=== PATIENT | male | born 1985 | race Caucasian/White ===

== ENCOUNTER 2019-01-02 14:47 | Day surgery (SDC) ==
[2019-01-02 15:15] LABS: BASO# 0.04 X1000 (0.0-0.2); BASO% 0.4 % (0.0-0.8); EOS# 0.31 X1000 (0.0-0.7); EOS% 3.3 % (0.0-10.0); HEMOGLOBIN 15.9 g/dL (14.0-18.0); IMM GRAN# 0.02 X1000 (0.0-0.04); IMM GRAN% 0.2 % (0.0-0.5); LYMPH# 1.83 X1000 (1.2-3.4); LYMPH% 19.3 % (20.5-51.1); MCH 32.6 PG (27-31); MCHC 33.8 g/dL (33-37); MCV 96.3 FL (81-99); MONO% 8.4 % (1.7-9.3); MPV 10.6 FL (7.4-10.4); NEUT# 6.49 X1000 (1.4-6.5); NEUT% 68.4 % (42.2-75.2); PLT 191 X1000 (130-400); RBC 4.88 XMIL (4.7-6.1); RDW 13.2 % (11.5-14.5); WBC 9.49 X1000 (4.8-10.8)
--- NOTE | 2019-01-02 15:29 | PROVIDER DOCUMENTATION ---
HPI-Screening - General Chief Complaint: Abdominal Pain Stated Complaint: V/D STOMACH PAIN Time Seen by Provider: 01/02/19 15:25 Source: patient Allergies/Adverse Reactions: Allergies Allergy/AdvReac Type Severity Reaction Status Date / Time Tetanus Vaccines and Toxoid Allergy SWELLING Verified 12/09/17 10:14 Home Medications: Home Medication List Medication Instructions Recorded Confirmed Last Taken Type Buspirone HCl 15 mg PO DAILY 12/09/17 12/09/17 12/09/17 07:00 History Clindamycin HCl 300 mg PO Q8HR #21 cap 12/09/17 Unknown Rx Duloxetine HCl 60 mg PO BID 12/09/17 12/09/17 12/09/17 07:00 History Famotidine [Pepcid] 20 mg PO DAILY #14 tab 12/09/17 Unknown Rx Ketorolac [Toradol] 10 mg PO Q6-8H PRN PRN #15 tab 12/09/17 Unknown Rx Patient arrived via EMS?: No HPI: Pt. is 33 yom that presents with c/o abd pain to the mid abdomen. He reports N/V/D and states onset was upon waking this morning with pain increasing throughout the day. He denies any fever and is AO x 3. He has good PMS x 4. Pt. has normal color and turgor. Physical Exam-Screening - CONSTITUTIONAL General Appearance: alert, mild distress, thin. negative: obese, slow to respond, obtunded, combative - RESPIRATORY Respiratory: lungs clear, normal breath sounds. negative: crackles, rales, rhonchi, stridor, wheezing - GASTROINTESTINAL (ABDOMEN) Abdominal Exam: soft, abnormal bowel sounds (hypoactive). negative: tenderness, hernia, mass - SKIN Integumentary: normal color, normal turgor. negative: cyanosis, erythema, jaundice, pallor, swelling, tenderness - PSYCHIATRIC Psych/Mental Status: normal mood/affect, normal thought content, normal thought process, oriented x 3. negative: anxious, paranoid, tearful Screening Depart - Departure ED Screening Disposition: Continued in ED for Treatment Date of Disposition Decision: 01/02/19 Time of Disposition Decision: 15:28 DIAGNOSIS: Nausea and vomiting Qualifiers: Vomiting type: unspecified Vomiting Intractability: unspecified Qualified Code(s): R11.2 - Nausea with vomiting, unspecified Disposition: STILL A PATIENT 30 Certified Medical Emergency: Emergent Condition: Stable Referrals and Follow-Ups: None,PCP [Primary Care Provider] - Attestation - Physician/ EVA Attestation Patient care was provided by Advanced Practice Provider:: Yes Advanced Practice Provider:: Chen Carbajal Advanced Practice Provider documentation review:: The Mid-level provider documentation, treatment plan and medical decision making was reviewed by the physician who agrees with all treatment and medical decision making by the MLP. The physician spent face to face time with patient:: No Advanced Practice Provider documentation review:: Supervising physician onsite and consulted in the evaluation and care of this patient. The physician did not have a face to face encounter with the patient.
[2019-01-02 15:52] LABS: AGAP 13; ALB/GLOB RATIO 1.4; ALBUMIN 4.2 g/dL (3.5-5.0); ALKALINE PHOSPHATASE 81 U/L (32-122); AMYLASE 52 U/L (20-200); BUN 9 mg/dL (8-22); CALCIUM 8.9 mg/dL (8.8-10.2); CHLORIDE 105 mmol/L (98-107); COSMO 280; CREATININE 0.8 mg/dL (0.7-1.2); ESTIMATED GFR > 60; GLUCOSE 105 mg/dL (70-104); GOT 17 U/L (10-34); GPT 15 U/L (10-44); LIPASE 21 U/L (13-60); POTASSIUM 4.1 mmol/L (3.5-5.1); SODIUM 141 mmol/L (136-145); TCO2 23 mmol/L (25-35); TOTAL BILIRUBIN 0.48 mg/dL (0.20-1.00); TOTAL PROTEIN 7.3 g/dL (6.3-8.3)
--- NOTE | 2019-01-02 15:52 | Diag Imaging Result Doc PS360 ---
FLAT/UPRIGHT ABD/1 VIEW CHEST - 01/02/2019 INDICATION: abd pain TECHNIQUE: COMPARISON: None FINDINGS: The chest is clear. There is a nonobstructive bowel gas pattern. No free air or abnormal calcifications. IMPRESSION: Negative exam. Electronically signed by Austyn Porras 01/02/2019 3:50 PM
[2019-01-02 16:10] LABS: URINE SOURCE CLEAN CATCH
[2019-01-02 16:15] LABS: BILIRUBIN URINE NEGATIVE (NEGATIVE); BLOOD URINE NEGATIVE (NEGATIVE); COLOR YELLOW; GLUCOSE URINE NEGATIVE (NEGATIVE); KETONE URINE NEGATIVE (NEGATIVE); LEUKOCYTES URINE NEGATIVE (NEGATIVE); NITRITE URINE NEGATIVE (NEGATIVE); PH URINE 7.5; PROTEIN URINE 30 mg/dL (NEGATIVE); SP GRAVITY URINE 1.031; TURBIDITY URINE CLEAR (CLEAR); UROBILINOGEN URINE 8 mg/dL (NORMAL)
--- NOTE | 2019-01-02 16:17 | PROVIDER DOCUMENTATION ---
HPI-General Adult - General Chief Complaint: Abdominal Pain Stated Complaint: V/D STOMACH PAIN Time Seen by Provider: 01/02/19 15:25 Source: patient Allergies/Adverse Reactions: Patient Allergies Allergy/AdvReac Type Severity Reaction Status Date / Time Tetanus Vaccines and Toxoid Allergy SWELLING Verified 12/09/17 10:14 Home Medications: Home Medication List Medication Instructions Recorded Confirmed Last Taken Type Buspirone HCl 15 mg PO DAILY 12/09/17 12/09/17 12/09/17 07:00 History Clindamycin HCl 300 mg PO Q8HR #21 cap 12/09/17 Unknown Rx Duloxetine HCl 60 mg PO BID 12/09/17 12/09/17 12/09/17 07:00 History Famotidine [Pepcid] 20 mg PO DAILY #14 tab 12/09/17 Unknown Rx Ketorolac [Toradol] 10 mg PO Q6-8H PRN PRN #15 tab 12/09/17 Unknown Rx - History of Present Illness -Gen Adult Nature of Presenting Problems: This is a 33yo male who present with CC of abdominal pain and nausea. The patient reports that symptoms started this morning. He was able to eat, but then threw up three times at work. The patient denies bloody stool or bloody vomit. The patient reports that he is not sure if he has had a fever, but has had some diarrhea. Review of Systems - Adult - REVIEW OF SYSTEMS - ADULT Constitutional: reports: fever (possible), fatique Eyes: reports: no symptoms reported. denies: eye pain Ears, Nose, Mouth & Throat: reports: no symptoms reported. denies: throat pain Cardiovascular: reports: no symptoms reported. denies: chest pain Respiratory: reports: no symptoms reported Gastrointestinal: reports: abdominal pain, diarrhea, nausea, vomiting Genitourinary: reports: no symptoms reported. denies: flank pain Musculoskeletal: reports: no symptoms reported Integumentary: reports: no symptoms reported Neurological: reports: no symptoms reported. denies: headache/migraines Psychiatric: reports: no symptoms reported Endocrine: reports: no symptoms reported Hematologic/Lymphatic: reports: no symptoms reported, other (no bleeding) Allergic/Immunologic: reports: other (no swelling) Past History - Adult - PAST MEDICAL HISTORY-ADULT Review of Records: reports: Old Records Reviewed, Nursing Assessment Review Major Childhood Illnesses: reports: denies history Cardiovascular: reports: denies history Respiratory: reports: denies history Gastrointestinal: reports: denies history Obstetrical/Gynecological: reports: denies history Genitourinary: reports: denies history Musculoskeletal: reports: denies history Neurological: reports: denies history Psychiatric: reports: anxiety, psychiatric problems Endocrine/Immune: reports: denies history Other Conditions: reports: denies history - PRIOR SURGERIES/PROCEDURES Surgical/Procedure History: reports: none - IMMUNIZATION STATUS Childhood Immunizations: See Nurse Assessment Flu Vaccine: See Nurse Assessment - FAMILY HISTORY Family History: reviewed, not pertinent - SOCIAL HISTORY Smoking: less than 1 pack/day Provider spent 3-5 mins advising pt. on dangers of tobacco.: Recomended cessatio n Substance Use: none/never Alcohol Use Frequency: never Physical Exam-General - PHYSICAL EXAM-ADULT Initial Vital Signs Reviewed: Yes - CONSTITUTIONAL General Appearance: appears well, alert, no apparent distress - EYES Eyes: negative: conjuctival exudate, photophobia, scleral icterus - HEAD, EARS, NOSE, MOUTH & THROAT HENMT: normocephalic/atraumatic, moist mucous membranes - NECK Neck: non-tender, other (no mass) - RESPIRATORY Respiratory: lungs clear, normal breath sounds, no respiratory distress - CARDIOVASCULAR Cardiovascular: regular rate, rhythm, no edema - GASTROINTESTINAL (ABDOMEN) Abdominal Exam: soft, rebound, tenderness, McBurney's point tenderness, Rovsing's sign. negative: guarding - MUSCULOSKELETAL Back Exam: no CVA tenderness Extremity: negative: deformity (LE) - SKIN Integumentary: normal color, warm/dry - NEUROLOGIC Neurologic: grossly normal - PSYCHIATRIC Psych/Mental Status: normal mood/affect, normal thought content, normal thought process Progress - PLAN OF CARE/RESULTS Progress/Plan/Lab Results: Vital Signs - 8 hr 01/02/19 14:51 Temperature 98.1 F Pulse Rate 65 Respiratory Rate 17 Blood Pressure 114/75 O2 Sat by Pulse Oximetry 99 Laboratory Results - last 24 hr 01/02/19 01/02/19 01/02/19 14:56 14:56 15:38 WBC 9.49 RBC 4.88 Hgb 15.9 Hct 47.0 MCV 96.3 MCH 32.6 H MCHC 33.8 RDW Std Deviation 13.2 Plt Count 191 MPV 10.6 H Immature Gran % (Auto) 0.2 Neut % (Auto) 68.4 Lymph % (Auto) 19.3 L Coffee % (Auto) 8.4 Eos % (Auto) 3.3 Baso % (Auto) 0.4 Immature Gran # (Auto) 0.02 Neut # (Auto) 6.49 Lymph # (Auto) 1.83 Coffee # (Auto) 0.80 H Eos # (Auto) 0.31 Baso # (Auto) 0.04 Sodium 141 Potassium 4.1 Chloride 105 Carbon Dioxide 23 L Anion Gap 13 BUN 9 Creatinine 0.8 Estimated GFR/1.73 m2 > 60 BUN/Creatinine Ratio 11 Glucose 105 H Calculated Osmolality 280 Calcium 8.9 Total Bilirubin 0.48 AST 17 ALT 15 Alkaline Phosphatase 81 Total Protein 7.3 Albumin 4.2 Globulin 3.1 Albumin/Globulin Ratio 1.4 Amylase 52 Lipase 21 Urine Source CLEAN CATCH Orders Category Date Time Status Saline Loc DIRECTED Care 01/02/19 14:57 Active NPO Diet 01/02/19 14:[address] ABD/PELVIS W/IV CONT ONLY [CT] Stat Exams 01/02/19 16:15 Ordered FLAT/UPRIGHT ABD/1 VIEW CHEST [RAD] Stat Exams 01/02/19 15:25 Completed AMYLASE [CHEM] Stat Lab 01/02/19 14:56 Completed CBC WITH ELECTRONIC DIFF [HEME] Stat Lab 01/02/19 14:56 Completed COMPREHENSIVE METABOLIC PANEL [CHEM] Stat Lab 01/02/19 14:56 Completed LIPASE [CHEM] Stat Lab 01/02/19 14:56 Completed URINALYSIS W/POSS RFLX CULT [URINALYSIS] Stat Lab 01/02/19 15:38 Results Result Diagrams: 01/02/19 14:56 01/02/19 14:56 - REASSESSMENT Reassessment #1 Status: other (Discussed with radiologist who reports that the patient has acute appendicitus without complications.) Reassessment #2 Status: other (Discussed case with general surgery team who will come to evaluate the patient.) Reassessment #3 Status: other (Surgery team has accepted the patient and are planning for surgery tonight.) Departure - Departure Date of Disposition Decision: 01/02/19 Time of Disposition Decision: 20:14 DIAGNOSIS: Nausea and vomiting Qualifiers: Vomiting type: unspecified Vomiting Intractability: unspecified Qualified Code(s): R11.2 - Nausea with vomiting, unspecified Acute appendicitis Qualifiers: Acute appendicitis type: unspecified acute appendicitis type Qualified Code(s): K35.80 - Unspecified acute appendicitis Disposition: ADMITTED INPATIENT 09 Certified Medical Emergency: Emergent Condition: Stable Referrals and Follow-Ups: None,PCP [Primary Care Provider] - - Critical Care Note This patient required my direct & personal management of CC.: No Attestation - Physician/ EVA Attestation Patient care was provided by Advanced Practice Provider:: No The physician spent face to face time with patient:: Yes Advanced Practice Provider documentation review:: Supervising physician onsite and consulted in the evaluation and care of this patient. The physician did have a face to face encounter with the patient.
[2019-01-02 16:22] LABS: UR EPITHELIAL CELLS <10 /HPF (<10); URINE BACTERIA NEGATIVE /HPF; URINE RBC <10 /HPF (<10); URINE WBC <10 /HPF (<10)
[2019-01-02 16:44] LABS: URINE CRYSTALS NONE SEEN
--- NOTE | 2019-01-02 17:34 | Diag Imaging Result Doc PS360 ---
CT ABD/PELVIS W/IV CONT ONLY - 01/02/2019 INDICATION: abdominal pain RLQ COMPARISON: None FINDINGS: The lung bases are clear and the heart size is normal. There are numerous tiny cysts scattered throughout the liver. These measure less than 5 mm. All other abdominal organs are normal. The vermiform appendix is mildly dilated and fluid-filled measuring about 8.4 mm. There is some questionable surrounding inflammation. There is perhaps trace pelvic free fluid. Urinary bladder, prostate, and rectum are normal. Bones are intact and well mineralized. IMPRESSION: Early acute appendicitis. This report was discussed with Armando in the emergency room on 01/02/2019 at 5:30 PM and was readback. This exam was performed using automated exposure control, adjustment of mA or kV according to patient size, and/or use of iterative reconstruction technique Electronically signed by Austyn Porras 01/02/2019 5:32 PM
[2019-01-02] MEDS ORDERED: ROBINUL ONE ×2 (19:29→20:13)
[2019-01-02] MEDS ORDERED: VERSED ONE (19:29)
[2019-01-02] MEDS ORDERED: DECADRON ONE (19:29)
[2019-01-02] MEDS ORDERED: XYLOCAINE-MPF 2% ONE (19:29)
[2019-01-02] MEDS ORDERED: DIPRIVAN 1% ONE (19:29)
[2019-01-02] MEDS ORDERED: ZEMURON ONE (19:29)
[2019-01-02] MEDS ORDERED: QUELICIN (DOSE) ONE (19:29)
[2019-01-02] MEDS ORDERED: ZOFRAN ONE (19:29)
[2019-01-02] MEDS ORDERED: MARCAINE 0.25% PF/EPI 1:200,000 ONE (19:32)
[2019-01-02] MEDS ORDERED: LR 1,000 ML ONE (19:32)
--- NOTE | 2019-01-02 19:47 | HISTORY AND PHYSICAL ---
Laith Trinidad is a 33-year-old white male who has a 12-hour history of abdominal pain localizing to his right lower quadrant. He was working at [email or web address] when he began feeling a little nausea and also abdominal pain and presented to the emergency department. Part of his evaluation included a CT scan of his abdomen and pelvis and it suggested acute appendicitis as did his exam and we were asked to evaluate him. PAST MEDICAL HISTORY: No prior surgery. No medical illness. MEDICATIONS: None. ALLERGIES: None. SOCIAL HISTORY: He smokes about a pack of cigarettes in 3 days. He works at [email or web address]. His parents were at the bedside. ALLERGIES: No known drug allergies. REVIEW OF SYSTEMS: 14-point review of systems was performed and was essentially negative except for his history of present illness. FAMILY HISTORY: Reviewed and was noncontributory. PHYSICAL EXAM: Mr. Trinidad is a healthy young white male of good weight, muscular in no acute distress. HEENT: No jaundice. No oral lesions. Satisfactory dentition. No cervical or supraclavicular lymphadenopathy. His heart has regular rate. LUNGS: Clear to auscultation and percussion bilaterally. ABDOMEN: Soft. He was tender in the right lower quadrant. There is no palpable mass. No previous surgery or scars. No hernia. No costovertebral tenderness. Rectal exam was not performed. He does have palpable peripheral pulses. No peripheral edema. NEUROLOGICAL: He is alert and oriented x3 and appropriate. DIAGNOSTIC DATA: CT scan suggests some inflammation around the appendix consistent with acute appendicitis as does his exam. IMPRESSION: Acute appendicitis. PLAN: Laparoscopic, possible open appendectomy this evening. I have discussed the procedure in detail with the patient and his family at the bedside in the ER including risks of bleeding, infection, injury to intraabdominal contents with trocar placement, removal of a normal appendix, leakage from the appendiceal stump requiring reoperation for drainage of infection, ruptured appendix requiring prolonged hospitalization and possible intraabdominal drains. They understand the need for surgery and its risks, and they want to proceed. cc: Tiffany Simeon MD
[2019-01-02] MEDS ORDERED: MEFOXIN 2 GM/D5W 2 GM/50 ML IVPB IV ONE (20:00)
[2019-01-02] MEDS ORDERED: OFIRMEV 1000 MG/ISOTONIC SOLN 1,000 MG/100 ML BOTTLE ONE (20:04)
[2019-01-02] MEDS ORDERED: DILAUDID ONE (20:05)
[2019-01-02] MEDS ORDERED: TORADOL ONE (20:13)
[2019-01-02] MEDS ORDERED: NEOSTIGMINE ONE (20:13)
[2019-01-02] MEDS ORDERED: NORCO-10 ONE (20:59)
--- NOTE | 2019-01-02 21:04 | OPERATIVE NOTE ---
PROCEDURE DATE: 01/02/2019 PREOPERATIVE DIAGNOSIS: Acute appendicitis. POSTOPERATIVE DIAGNOSIS: Acute appendicitis. PRINCIPAL PROCEDURE: Laparoscopic appendectomy. SURGEON: Tiffany Simeon MD. ANESTHESIA: General in addition to local anesthetic. ESTIMATED BLOOD LOSS: 10 mL. DRAINS: None. INDICATIONS: Laith Trinidad is a 33-year-old otherwise healthy white male who had a 12-hour history of abdominal pain localizing to his right lower quadrant. He presented to our emergency department, and as part of his evaluation, he underwent a CT scan of the abdomen and pelvis, which suggested appendicitis as did his exam. FINDINGS: He had acute appendicitis without evidence of rupture. DESCRIPTION OF PROCEDURE: The patient was brought to the operating room, placed supine, received general anesthesia, was intubated. Newman catheter tube was placed. His abdomen was prepped and draped in a sterile field. I began the procedure by making a small incision below the umbilicus with a 15 blade scalpel. Veress needle was introduced through this incision into the abdomen. Pneumoperitoneum was established. The Veress needle was removed, and I used step trocars. I placed 11 mm step trocar through this incision into the abdomen. The camera was placed through this port, and the abdomen was explored for injury. There was none. I placed 2 other trocars under direct vision of the camera. I placed a 12 mm trocar suprapubic area through a small transverse incision midline, and I placed another 5 mm trocar in the right lower quadrant of the abdomen. The camera was at the umbilical port. I used a grasper and a dissector to mobilize the appendix. I used spatula cautery to help mobilize the appendiceal mesentery. I used a 30 mm in length gold load stapler to come across the appendiceal mesentery and then I used a reload of this stapler to come across the base of the appendix. I used an endobag to remove the appendix through our 12 mm port site and I placed the trocar back through this incision and the area of operation was thoroughly inspected, irrigated, and the irrigation was removed with suction. There was no evidence of ongoing bleeding. We were happy with the appendiceal stump. No drains were left. All trocars removed under direct vision of the camera. The pneumoperitoneum was allowed to dissipate. I used a [id number] 2-0 Vicryl stitches to reapproximate the fascia at our midline incisions. All skin was closed with 4-0 Monocryl subcuticular stitches. Steri-Strips were applied. Plans are to remove the Newman catheter tube, have the patient go to the recovery room and then be admitted at least overnight. cc: Tiffany Simeon MD
[2019-01-02] MEDS ORDERED: PHENERGAN IV PRN (21:46)
[2019-01-02] MEDS ORDERED: NORCO-10 PO PRN (21:46)
[2019-01-02] MEDS ORDERED: TYLENOL PO PRN (21:48)
[2019-01-02] MEDS ORDERED: SODIUM CHLORIDE 0.9% INJ PRN (22:00)
[2019-01-02] MEDS: MORPHINE IV PRN (23:40)
[2019-01-03] MEDS: LR 1,000 ML IV SCH ×2 (03:21→05:26)
[2019-01-03] MEDS: MORPHINE IV PRN (05:02)
[2019-01-03 07:24] VITALS: BP 106/61
--- NOTE | 2019-01-03 08:29 | DISCHARGE SUMMARY ---
ADMISSION DATE: 01/02/2019 DISCHARGE DATE: 01/03/2019 ADMITTING DIAGNOSIS: Acute appendicitis. DISCHARGE DIAGNOSIS: Acute appendicitis. PRINCIPAL PROCEDURE: Laparoscopic appendectomy on 01/02/2019. DISCHARGE DIET: Regular. DISCHARGE DISPOSITION: He will return to see me in my outpatient offices in a week. DISCHARGE MEDICATIONS: He is to return to home medications. HOSPITAL COURSE: Mr. Laith Trinidad is a 33-year-old white male who works at [employer] He presented to our emergency department with a 12-hour history of abdominal pain localizing to his right lower quadrant. A CT scan was performed under the direction of our emergency department physician which suggested acute appendicitis as did his exam. On the evening of his presentation, he went to the operating room, and underwent a laparoscopic appendectomy for acute appendicitis without rupture. We felt the surgery went well. After surgery, he went to the recovery room, and then was hospitalized overnight on the [address] [place] [address] [place]. On postop day 1, he was tolerating liquids. He is able to ambulate in his room. His abdomen was soft, and clinically felt better. It was felt safe to discharge him home under the care of his parents with followup in my outpatient office in a week. cc: Tiffany Simeon MD
[2019-01-03] MEDS ORDERED: FLU VACCINE IM ONE (09:00)
== END 2019-01-03 08:53 | disposition home or self-care (01) ==
LOC: ED 14:47 → OPS 21:32 → INTOOBSV 21:32 → 4N 21:32 → ED 01-03 08:53 → OPS 01-03 14:18
PROVIDERS: ATTEND Surgery